=== PATIENT | female | born 1990 | race African-American/Black ===

== ENCOUNTER 2021-06-04 23:41 | Inpatient (IN) | payer OTHER ==
[~2021-06-04] VITALS: Ht 167.6 cm; Wt 108.4 kg
[2021-06-04 23:54] VITALS: BP 140/86
[2021-06-05 00:11] LABS: URINE BILIRUBIN NEGATIVE (Negative); URINE BLOOD NEGATIVE (Negative); URINE CLARITY CLEAR; URINE COLOR YELLOW; URINE GLUCOSE-RANDOM* NEGATIVE (Negative); URINE KETONES TRACE (Negative); URINE LEUKOCYTES-REFLEX NEGATIVE (Negative); URINE NITRITE-REFLEX NEGATIVE (Negative); URINE PROTEIN (DIPSTICK) NEGATIVE (Negative); URINE SPECIFIC GRAVITY 1.025 (1.005-1.035)
[2021-06-05 00:41] LABS: ABSOLUTE NEUTROPHILS 4.8 thou/uL (1.4-8.2); BASOPHILS 0.2 % (0.0-2.0); EOSINOPHILS 0.7 % (0.0-3.0); HEMOGLOBIN 12.3 gm/dL (12.0-15.0); LYMPHOCYTES 17.4 % (24.0-44.0); MCH 30.2 pg (26.0-34.0); MCHC 34.2 g/dL (28.0-37.0); MCV 88.2 fL (80.0-100.0); MONOCYTES 7.6 % (1.0-8.0); PLATELET COUNT 238 thou/uL (150-400); POLYS 74.1 % (36.0-66.0); RBC 4.08 mil/uL (4.20-5.00); RDW 13.1 % (10.5-14.5); WBC 6.5 thou/uL (4.0-11.0)
[2021-06-05 00:48] LABS: CALCIUM 8.9 mg/dL (8.5-10.1); CREATININE 0.7 mg/dL (0.6-1.0); POTASSIUM 3.5 mmol/L (3.5-5.1)
[2021-06-05 01:02] LABS: ALBUMIN 3.6 g/dL (3.4-5.0); TOTAL BILIRUBIN 0.5 mg/dL (0.2-1.0); TOTAL PROTEIN 7.1 g/dL (6.4-8.2)
[2021-06-05 03:26] VITALS: BP 140/86
[2021-06-05 03:59] VITALS: BP 150/76
[2021-06-05 05:11] VITALS: BP 110/70
[2021-06-05 07:30] VITALS: BP 134/81
[2021-06-05] MEDS ORDERED: IBUPROFEN 200200 M1 PO (14:30)
[2021-06-05] MEDS ORDERED: OXYCODONE HCL 55 MG PO (14:30)
[2021-06-05] MEDS ORDERED: ACETAMINOPHEN325 M1 PO (14:31)
[2021-06-05] MEDS ORDERED: MIRALAX17 GM PO (14:31)
[2021-06-05] MEDS ORDERED: COLACE 100 MG100 MG PO (14:31)
[2021-06-05 15:56] VITALS: BP 117/77
[2021-06-05 20:00] VITALS: BP 141/96
[2021-06-06 07:28] VITALS: BP 110/71
[2021-06-06 10:34] VITALS: BP 110/71
== END 2021-06-06 14:35 | disposition home or self-care (01) | DRG 419 ==
LOC: ER 23:41 → EROBS 06-05 02:59 → 4W 06-05 04:47
PROVIDERS: Emergency Medicine; ADMIT Surgery; ATTEND Surgery
PROC: 0FT44ZZ Resection of Gallbladder, Percutaneous Endoscopic Approach (ICD-10-PCS; principal; 2021-06-05)
DX: K81.0 Acute cholecystitis (principal); Z91.02 Food additives allergy status; Z20.822 Contact with and (suspected) exposure to COVID-19; Z91.040 Latex allergy status
CPT/HCPCS: 10045; 50010